=== PATIENT | female | born 1950 | race Caucasian/White ===

== ENCOUNTER 2024-03-09 11:26 | Emergency (ER) | payer MEDICARE ==
[~2024-03-09] VITALS: Ht 165.1 cm; Wt 95.3 kg
--- NOTE | 2024-03-09 11:42 | NUR ---
C COLLAR: PT REMOVED C COLLAR ON HER OWN DESPITE RISKS PROVIDED BY PARAMEDICS WHO BROUGHT HER AND MYSELF.
--- NOTE | 2024-03-09 11:43 | NUR ---
PT PLACED IN ED BED 16
--- NOTE | 2024-03-09 11:44 | ERN ---
ED Note History of Present Illness Stated Complaint: FALL FROM STEP STOOL ONE FOOT Chief Complaint: Mechanical Fall Time Seen by MD: 11:32 Dictation: Patient is a 73-year-old female with past medical history of hypertension, diabetes is brought to ED by EMS with a chief complaint of left back pain of chest due to mechanical fall 1 hour ago. Patient fell from a step stool height onto the back. Patient did not have trauma to head, loss of consciousness, not on blood thinners. Patient complains of left back pain on breathing. Patient denies pain anywhere else Allergies: Uncoded Allergies: NKDA (Allergy, Unknown, 03/09/24) Past Medical History Past Medical History: Diabetes-Type II, Hypertension Review of System Dictation Constitutional-no chills, weight loss/gain, fever Eyes-no injury, pain, redness and discharge ENT-no injury, pain, swelling Cardiovascular no chest pain, palpitations, edema Respiratory no shortness of breath, cough, wheezing Abdomen/GI-no abdominal pain, diarrhea, constipation, vomiting, nausea Back had an impact to the posterior left chest due to mechanical fall Genitourinary no injury, bleeding and discharge Musculoskeletal/extremities no injury, deformity Skin no rash, discoloration Neuro-no headache, weakness, numbness, tingling, seizures, tremors Psych-no suicidal ideation, homicidal ideation, hallucinations, depression, anxiety, memory loss Initial Vital Sign VS Vital Signs Date Time Temp Pulse Resp B/P (MAP) Pulse Ox O2 Delivery O2 Flow Rate FiO2 03/09/24 11:29 98.6 79 19 149/66 97 Room Air 0 Physical Exam Dictation General-patient is awake alert and oriented Head/neck-normocephalic, atraumatic Eyes-PERRL, EOMI, vision at baseline Neck-trachea midline, supple, no nuchal rigidity Cardiovascular-RRR, normal S1/S2, no MRG is, no JVD Respiratory-no distress, wheezing, rales, rhonchi Abdomen-no tenderness, guarding, soft, nondistended Skin warm, dry, normal turgor, no rash Musculoskeletal/extremities pulses equal, no cyanosis. Patient has tenderness over the left posterior chest area Neuro-COA X 4, GCS 15, strength 5/5, CN 2-12 intact Psych-normal behavior, mood and affect normal Results (Laboratory/Radiology) Laboratory/Radiology Laboratory Tests Test 03/09/24 11:49 White Blood Count 9.2 K/uL (4.8-10.8) Red Blood Count 4.11 MIL/uL (4.00-5.50) Hemoglobin 12.5 g/dL (12.0-16.0) Hematocrit 37.8 % (36-48) Mean Corpuscular Volume 92.0 fL (79-99) Mean Corpuscular Hemoglobin 30.4 pg (27.0-33.0) Mean Corpuscular Hemoglobin Concent 33.1 g/dL (32.0-36.0) Red Cell Distribution Width 12.9 % (11.0-15.5) Platelet Count 191 K/uL (130-400) Mean Platelet Volume 13.3 fL (7.5-10.5) H Immature Granulocyte % (Auto) 0.4 % (0-1) Neutrophils (%) (Auto) 61.8 % (40.0-77.0) Lymphocytes (%) (Auto) 30.6 % (21.0-51.0) Monocytes (%) (Auto) 5.6 % (3.0-13.0) Eosinophils (%) (Auto) 1.3 % (0.0-8.0) Basophils (%) (Auto) 0.3 % (0.0-5.0) Neutrophils # (Auto) 5.7 K/uL (1.8-7.7) Lymphocytes # (Auto) 2.8 K/uL (1.0-4.8) Monocytes # (Auto) 0.5 K/uL (0.1-1.0) Eosinophils # (Auto) 0.12 K/uL (0.00-0.70) Basophils # (Auto) 0.03 K/uL (0.00-0.20) Absolute Immature Granulocyte (auto 0.04 K/uL (0-1) Nucleated Red Blood Cells 0.0 % (0.0-0.19) Sodium Level 140 mmol/L (136-145) Potassium Level 4.0 mmol/L (3.5-5.1) Chloride Level 103 mmol/L (101-111) Carbon Dioxide Level 29 mmol/L (21-32) Blood Urea Nitrogen 10 mg/dL (7-18) Creatinine 0.9 mg/dL (0.5-1.0) Glomerular Filtration Rate Calc 68 mL/min (>90) Random Glucose 120 mg/dL (70-105) H Total Calcium 9.1 mg/dL (8.5-10.1) Troponin I High Sensitivity 22 ng/L (4-50) Labs Reviewed?: Yes EKG Comment: EKG 03/09/2024 ventricular rate 77, sinus rhythm, left anterior fascicular block, [place] 156, QRS D 96. No STEMI CT Scan Comment: REASON: chest injury , R/O Pulmonary contusion ORDERING PHYSICIAN: LONNIE DIEHL MD PROCEDURE: CHEST WO - CT CHEST W/O CONTRAST ADDENDUM REPORT CT CHEST W/O CONTRAST HISTORY: Injury COMPARISON: None TECHNIQUE: Multiple sequential axial images of the chest were obtained from the thoracic inlet through upper abdomen. Patient was not given contrast through intravenous route. FINDINGS: There is no evidence of pulmonary nodule or parenchymal disease. There are mild interstitial fibrosis. No pleural effusion or pericardial effusion is seen. There is no evidence of pneumothorax. There are normal size mediastinal and hilar lymph nodes. The heart is not enlarged. Coronary arterial calcifications are seen. Degenerative changes of the thoracolumbar spine are present. There is no evidence of adrenal nodule.There is left ninth rib fracture with displacement. There is left 10th rib fracture. IMPRESSION: 1. No evidence of pulmonary nodule or effusion is seen. Mild interstitial fibrosis. There is left ninth rib fracture with displacement. There is left 10th rib fracture. No pneumothorax is seen. CT was performed with one or more following dose reduction techniques: automated exposure control, adjustment of the mA and kv according to patient's size, or use of a iterative reconstruction technique. DICTATED BY: JUSTINE REINOSO MD DATE: 03/09/24 1315 ED Course ED Course Orders Procedure Category Date Status Time Morphine 2mg Syg PHA 03/09/24 Complete (Morphine 2mg Syg) 12:00 Cbc With Differential LAB 03/09/24 Complete 11:35 Chest 2vws RAD 03/09/24 Resulted 11:35 12 Lead Ekg Tracing- EKG 03/09/24 Complete Technical 11:35 Troponin I High LAB 03/09/24 Complete Sensitivity 11:35 Basic Metabolic Panel LAB 03/09/24 Complete 11:35 Ct Chest W/O Contrast CT 03/09/24 Resulted 12:29 Gabapentin 100 Mg Cap PHA 11/22/24 Complete (Neurontin 100 Mg 13:27 Orphenadrine Citrate PHA 03/09/24 Complete (Norflex) 13:30 Current Medications Medications (Trade) Dose Ordered Sig/Yan Route PRN Reason Start Time Stop Time Status Last Admin Dose Admin Gabapentin (NEURontin 100 mg CAP) 100 mg ONCE STAT PO 03/09/24 13:27 03/09/24 13:29 DC Morphine Sulfate (morPHINE 2MG SYG) 2 mg ONCE ONCE IVP 03/09/24 12:00 03/09/24 12:01 DC 03/09/24 12:01 Orphenadrine Citrate (Norflex) 60 mg ONCE ONCE IM 03/09/24 13:30 03/09/24 13:31 DC Vital Signs Date Time Temp Pulse Resp B/P (MAP) Pulse Ox O2 Delivery O2 Flow Rate FiO2 03/09/24 11:29 98.6 79 19 149/66 97 Room Air 0 Medical Decision Making MDM INITIAL IMPRESSION Initial history and physical concerning for left posterior rib fracture, lung contusion Contributing medical problems: I have reviewed the triage nursing notes and vital signs. Initial plan: Laboratory evaluation and x-ray DATA REVIEW I have reviewed additional NN, repeat VS, and monitoring where indicated. Heart rate, blood pressure, and O2 saturation are acceptable. [place] diagnostic results: Other independent historian: Review of external data: ED COURSE Interventions: Pain management Reassessment: Patient had rib fracture and is further imaged with chest CT to rule out pulmonary contusion DISPOSITION Final diagnostic impression: I discussed my findings, clinical impression and treatment recommendations with the patient. I have reviewed the social factors contributing to the patient's presentation and disposition planning. My final plan for disposition was made based upon -mild risk of complications and potential morbidity of the patient's condition. -Discussion with the patient regarding management options. Patient will be discharged with pain medication DX & DISP Disposition: Discharge Departure Impression: Primary Impression: left rib fractures Condition: Stable Scripts Azithromycin (Azithromycin) 500 Mg Tablet 1 TAB PO DAILY for 5 Days, #5 TAB 0 Refills Prov: JERRI DAVIS MD 03/09/24 Tramadol HCl/Acetaminophen (Tramadol-Acetaminophn 37.5-325) 37.5 Mg-325 Mg Tablet 1 TAB PO BID PRN for pain for 2 Days, #6 TAB 0 Refills Prov: JERRI DAVIS MD 03/09/24 Additional Instructions: FOLLOW-UP WITH PRIMARY CARE PROVIDER IN 1 TO 2 DAYS. TAKE MEDICATIONS DIRECTED HERE IN THE EMERGENCY ROOM. OKAY TO CONTINUE HOME MEDICATIONS UNLESS OTHERWISE DISCUSSED DURING YOUR VISIT IN THE EMERGENCY ROOM TODAY. RETURN TO YOUR NEAREST EMERGENCY ROOM IF SYMPTOMS WORSEN OR IF THERE IS NO IMPROVEMENT. CALL 911 IF YOU NEED IMMEDIATE ASSISTANCE. TAKE TYLENOL [id number] NEEDED AND IF NO CONTRAINDICATIONS ARE PRESENT. INCREASE ORAL HYDRATION. A WOUND CULTURE OR URINE CULTURE WAS ORDERED HERE IN THE EMERGENCY ROOM DEPARTMENT PLEASE FOLLOW-UP WITH PRIMARY CARE PROVIDER AND ADVISE THEM TO GET REPEAT PORTS FROM OUR FACILITY. IF YOU HAD ANY CRYSTAL WRAP/SPLINTS THAT WERE APPLIED HERE, PLEASE DO NOT REMOVE THEM UNTIL YOU SEE YOUR PRIMARY CARE OR SPECIALTY. REFERRALS: Referrals: SELF,REFERRAL (PCP) STEVE HERRON MD Time of Disposition: 13:27 I was present and participated in the care of this patient alongside the resident physician. I have reviewed and personally made and improve the management plan that is documented in the note by myself or the resident physician. I acknowledge full responsibility for the patient's management plan. LONNIE DIEHL MD Mar 09, 2024 11:44 JERRI DAVIS MD Mar 09, 2024 13:29
[2024-03-09] MEDS: morPHINE 2 MG SYG IVP ONE (12:01)
--- NOTE | 2024-03-09 12:06 | EKG ---
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
[2024-03-09 12:10] LABS: CREATININE 0.9 mg/dL (0.5-1.0)
[2024-03-09 12:40] LABS: BASOPHILS # (AUTO) 0.03 K/uL (0.00-0.20); BASOPHILS % (AUTO) 0.3 % (0.0-5.0); EOSINOPHILS # (AUTO) 0.12 K/uL (0.00-0.70); EOSINOPHILS % (AUTO) 1.3 % (0.0-8.0); HEMATOCRIT 37.8 % (36-48); IMMATURE GRANULOCYTE ABSOLUTE 0.04 K/uL (0-1); LYMPHOCYTES # (AUTO) 2.8 K/uL (1.0-4.8); LYMPHOCYTES % (AUTO) 30.6 % (21.0-51.0); MEAN CORPUSCULAR HEMOGLOBIN 30.4 pg (27.0-33.0); MEAN CORPUSCULAR HGB CONC 33.1 g/dL (32.0-36.0); MONOCYTES # (AUTO) 0.5 K/uL (0.1-1.0); MONOCYTES % (AUTO) 5.6 % (3.0-13.0); NEUTROPHILS # (AUTO) 5.7 K/uL (1.8-7.7); NEUTROPHILS % (AUTO) 61.8 % (40.0-77.0); PLATELET COUNT (AUTO) 191 K/uL (130-400); RED BLOOD CELL COUNT(AUTO) 4.11 MIL/uL (4.00-5.50); RED CELL DISTRIBUTION WIDTH 12.9 % (11.0-15.5); WHITE BLOOD COUNT (AUTO) 9.2 K/uL (4.8-10.8)
--- NOTE | 2024-03-09 13:06 | HMCIMG ---
CT CHEST W/O CONTRAST HISTORY: Injury COMPARISON: None TECHNIQUE: Multiple sequential axial images of the chest were obtained from the thoracic inlet through upper abdomen. Patient was not given contrast through intravenous route. FINDINGS: There is no evidence of pulmonary nodule or parenchymal disease. There are mild interstitial fibrosis. No pleural effusion or pericardial effusion is seen. There is no evidence of pneumothorax. There are normal size mediastinal and hilar lymph nodes. The heart is not enlarged. Coronary arterial calcifications are seen. Degenerative changes of the thoracolumbar spine are present. There is no evidence of adrenal nodule. IMPRESSION: 1. No evidence of pulmonary nodule or effusion is seen. Mild interstitial fibrosis. CT was performed with one or more following dose reduction techniques: automated exposure control, adjustment of the mA and kv according to patient's size, or use of a iterative reconstruction technique.
--- NOTE | 2024-03-09 13:11 | HMCIMG ---
CHEST 2VWS HISTORY: Status post fall COMPARISON: None FINDINGS: Frontal and lateral projections of the chest were obtained. There is no acute pulmonary infiltrates or failure. The heart is borderline enlarged. No evidence of aortic calcification is seen. Degenerative changes are seen of the thoracolumbar spine. IMPRESSION: 1. No acute pulmonary infiltrates.
--- NOTE | 2024-03-09 13:27 | NUR ---
ED INFORMED THE CT CHEST RESULTS HAVE RETURNED
[2024-03-09] MEDS ORDERED: AZIT500T4 PO (13:37)
[2024-03-09] MEDS ORDERED: TRAM-543 PO (13:37)
[2024-03-09] MEDS: ORPHENADRINE 60MG/2ML IM ONE (13:45)
[2024-03-09] MEDS: GABApentin 100 MG CAPSULE PO STA (13:45)
[2024-03-09 14:34] VITALS: BP 142/74; PULSE 16; RESP 16; TEMP 97.8; O2SAT 0
== END 2024-03-09 14:24 | disposition home or self-care (01) ==
LOC: EDH 11:26
DX: S22.42XA Multiple fractures of ribs, left side, initial encounter for closed fracture (principal); W18.39XA Other fall on same level, initial encounter; Y93.89 Activity, other specified; Y92.89 Other specified places as the place of occurrence of the external cause; Y99.8 Other external cause status; E11.9 Type 2 diabetes mellitus without complications; I10 Essential (primary) hypertension
CPT/HCPCS: 99285; 96374; 71250; 71046; 84484; 80048; 85025; 36415; 93005; 96372; J2270; J2360